=== PATIENT | female | born 1965 | race Caucasian/White ===

== ENCOUNTER 2018-07-25 15:04 | Emergency (ER) | payer BC ==
[~2018-07-25] VITALS: Ht 157.5 cm; Wt 74.4 kg
== END 2018-07-25 16:23 | disposition home or self-care (01) ==
LOC: FSED 15:04
DX: L03.012 Cellulitis of left finger (principal); E03.9 Hypothyroidism, unspecified; J45.909 Unspecified asthma, uncomplicated
CPT/HCPCS: 99283